=== PATIENT | female | born 1995 | race Two or more races ===

== ENCOUNTER → 2017-04-13 | Outpatient (CLI) | payer SELFPAY ==
[2017-04-15 14:13] LABS: QUANTIFERON GOLD TB Negative (Negative); TB Test (QFT) Antigen 0.03 IU/mL (.); TB Test (QFT) Mitogen 9.58 IU/mL (.); TB Test (QFT) Nil 0.03 IU/mL (.)
== END ==
LOC: M LAB 12:03
DX: R76.11 Nonspecific reaction to tuberculin skin test without active tuberculosis (principal)
CPT/HCPCS: 36415

== ENCOUNTER 2017-06-17 18:10 | Emergency (ER) | payer SELFPAY ==
[2017-06-17 19:54] LABS: HEMATOCRIT 40.9 % (36.0-47.0); HEMOGLOBIN 13.7 g/dl (12.0-16.0); MEAN CORPUSCULAR HGB CONC 33.5 g/dl (32.0-36.5); MEAN CORPUSCULAR VOLUME 89.7 fl (80.0-96.0); PLATELET COUNT, AUTOMATED 455 10^3/uL (150-450); RED BLOOD COUNT 4.56 10^6/uL (4.00-5.40); RED CELL DISTRIBUTION WIDTH 13.6 % (11.5-14.5); WHITE BLOOD COUNT 15.6 10^3/uL (4.0-10.0)
[2017-06-17 20:18] LABS: HCG, SERUM QUANTITATIVE < 1.0 MIU/ML
[2017-06-17 20:27] LABS: AMORPHOUS SEDIMENT RFX LARGE (NEGATIVE); KETONE, URINE AUTO RFX NEGATIVE (NEGATIVE); MUCUS, URINE RFX MODERATE (NEGATIVE); NITRITE, URINE AUTO RFX NEGATIVE (NEGATIVE); RBC, URINE AUTO RFX 1 /HPF (0-3); SPECIFIC GRAVITY UR AUTO RFX 1.023 (1.002-1.035); SQUAM EPITHELIAL CELL UR AURFX 26 /HPF (0-6); WBC, URINE AUTO RFX 7 /HPF (0-3)
[2017-06-17 20:29] LABS: LEUKOCYTE ESTERASE UR AUTO RFX 1+ (NEGATIVE)
[2017-06-17 21:24] LABS: BLOOD UREA NITROGEN 7 MG/DL (7-18); CALCIUM LEVEL 8.7 MG/DL (8.5-10.1); CHLORIDE LEVEL 108 MEQ/L (98-107); CREATININE FOR GFR 0.71 MG/DL (0.55-1.30); GLUCOSE, FASTING 80 MG/DL (70-100); POTASSIUM SERUM 4.1 MEQ/L (3.5-5.1); SODIUM LEVEL 141 MEQ/L (136-145)
[2017-06-17 21:27] LABS: ANION GAP 9 MEQ/L (8-16); CARBON DIOXIDE LEVEL 24 MEQ/L (21-32)
[2017-06-17] MEDS: NITROFURANTOIN (MACROBID) 100 MG CAP PO (21:45)
== END 2017-06-17 21:51 | disposition home or self-care (01) ==
LOC: M ED 18:10
DX: N39.0 Urinary tract infection, site not specified (principal); F33.9 Major depressive disorder, recurrent, unspecified; Z79.899 Other long term (current) drug therapy; F17.210 Nicotine dependence, cigarettes, uncomplicated
CPT/HCPCS: 84702

== ENCOUNTER → 2017-08-17 | Outpatient (REF) | payer OTHER | LOC: M SFHCLERA 19:02 | DX: R10.9 Unspecified abdominal pain (principal) ==